=== PATIENT | male | born 1970 | race Caucasian/White ===

== ENCOUNTER 2020-10-26 05:51 | Day surgery (SDC) | payer OTHER ==
[2020-10-23 11:34] LABS: BASOPHILS % (AUTO) 1 % (0-1); EOSINOPHILS % (AUTO) 2 % (1-7); LYMPHOCYTES % (AUTO) 16 % (22-44); MEAN CORPUSCULAR HEMOGLOBIN 30.7 pg (27.5-34.5); MEAN CORPUSCULAR HGB CONC 34.2 g/dL (33.2-36.2); MEAN PLATELET VOLUME 7.7 fL (7.4-10.4); MONOCYTES % (AUTO) 7 % (2-9); NEUTROPHILS % (AUTO) 75 % (42-75); PLATELET COUNT 237 x10^3/uL (130-400); RED BLOOD COUNT 5.21 x10^6/uL (4.38-5.82); RED CELL DISTRIBUTION WIDTH 14.5 % (9.4-14.8)
[2020-10-23 11:40] LABS: MD NO
[2020-10-23 11:42] LABS: ALANINE AMINOTRANSFERASE 39 U/L (12-78); ALBUMIN 3.9 g/dL (3.4-5.0); ANION GAP 7 mmol/L (5-15); CALCIUM 9.5 mg/dL (8.5-10.1); CHLORIDE 112 mmol/L (98-107); CREATININE 1.23 mg/dL (0.7-1.3)
[2020-10-23 11:45] LABS: ALKALINE PHOSPHATASE 68 U/L (45-117); BILIRUBIN,TOTAL 0.2 mg/dL (0.2-1.0); TOTAL PROTEIN 7.1 g/dL (6.4-8.2)
[2020-10-23 11:52] LABS: INTERNATIONAL NORMALIZED RATIO 1.01 (0.93-1.1); PROTHROMBIN TIME 10.8 Seconds (9.6-11.5)
[~2020-10-26] VITALS: Ht 190.5 cm; Wt 112.0 kg
[~2020-10-26 05:51] MED LIST: ASPI325T17 PO; CHOL10003 PO; FENO145T19 PO; LEVO100T5 PO; LISI-170 PO; METO50TA82 PO; OMEP-110 PO; ROSU40TA PO
[2020-10-26 06:43] VITALS: BP 123/84
[2020-10-26] MEDS ORDERED: LACTATED RINGERS 1,000 ML IV SCH (07:00)
[2020-10-26] MEDS ORDERED: CHLORHEXIDINE 15 ML UDC MM ONE (07:00)
[2020-10-26] MEDS ORDERED: MIDAZOLAM 1 MG/ML, 2ML ONE (07:47)
[2020-10-26] MEDS ORDERED: FENTANYL PF 250 MCG/5ML ONE (07:47)
[2020-10-26] MEDS ORDERED: SUCCINYLCHOLINE 20 MG/ML, 10ML ONE (07:49)
[2020-10-26] MEDS ORDERED: PROPOFOL 10 MG/ML, 20ML ONE (07:49)
[2020-10-26] MEDS ORDERED: LIDOCAINE-MPF 2% ,5ML ONE (07:49)
[2020-10-26] MEDS ORDERED: DIPHENHYDRAMINE 50 MG/ML, 1ML IVPush PRN (08:00)
[2020-10-26] MEDS ORDERED: hydrALAzine 20 MG/ML, 1ML IV PRN (08:00)
[2020-10-26] MEDS ORDERED: PROMETHAZINE 25 MG/ML, 1ML IVPush PRN (08:00)
[2020-10-26] MEDS ORDERED: MEPERIDINE/PF 25MG/0.5ML IVPush PRN (08:00)
[2020-10-26] MEDS ORDERED: KETOROLAC 30 MG/1 ML IVPush PRN (08:00)
[2020-10-26] MEDS ORDERED: ACETAMINOPHEN 325 MG TABLET PO PRN (08:00)
[2020-10-26] MEDS ORDERED: HYDROmorphone 1 MG/ML, 1ML INJ IVPush PRN (08:00)
[2020-10-26] MEDS ORDERED: DIAZEPAM 5 MG/ML, 2ML IVPush PRN (08:00)
[2020-10-26] MEDS ORDERED: OXYcodone 5 MG/5 ML ORAL.SOL UDC PO PRN (08:00)
[2020-10-26] MEDS ORDERED: FENTANYL PF 100 MCG/2ML IV PRN (08:00)
[2020-10-26] MEDS ORDERED: ONDANSETRON 2MG/ML, 2ML IVPush PRN (08:00)
[2020-10-26] MEDS ORDERED: LABETALOL 5MG/ML, 20ML IV PRN (08:00)
[2020-10-26] MEDS ORDERED: EPINEPHRINE 1 MG/ML, 1ML ONE (08:20)
[2020-10-26] MEDS ORDERED: BUPIVACAINE/PF 0.5% ONE (08:20)
[2020-10-26] MEDS ORDERED: ONDANSETRON 2MG/ML, 2ML ONE (08:47)
[2020-10-26] MEDS ORDERED: ROCURONIUM 10 MG/ML,10ML ONE (08:47)
[2020-10-26] MEDS ORDERED: CEFAZOLIN 1,000 MG ONE (08:47)
[2020-10-26] MEDS ORDERED: PHENYLEPHRINE 10 MG/ML ONE (08:47)
[2020-10-26] MEDS ORDERED: NEOSTIGMINE 1 MG/ML, 10ML ONE ×2 (08:47)
[2020-10-26] MEDS ORDERED: HYDR-1067 PO (10:40)
[2020-10-26] MEDS ORDERED: ACETAMINOPHEN 650 MG/20.3 ML UDC ONE (10:54)
[2020-10-26] MEDS ORDERED: FENTANYL PF 100 MCG/2ML ONE (10:55)
[2020-10-26] MEDS ORDERED: OXYcodone 5 MG/5 ML ORAL.SOL UDC ONE (10:55)
== END 2020-10-26 12:05 | disposition home or self-care (01) ==
LOC: OUT 05:51 → EDSTATUS 09:00 → OUT 12:05
PROVIDERS: ATTEND Surgery
DX: C43.59 Malignant melanoma of other part of trunk (principal); I10 Essential (primary) hypertension; E78.5 Hyperlipidemia, unspecified; K21.9 Gastro-esophageal reflux disease without esophagitis; E03.9 Hypothyroidism, unspecified; I25.2 Old myocardial infarction; F17.210 Nicotine dependence, cigarettes, uncomplicated; Z79.82 Long term (current) use of aspirin; Z79.899 Other long term (current) drug therapy; Z72.89 Other problems related to lifestyle; Z20.822 Contact with and (suspected) exposure to COVID-19; Z79.01 Long term (current) use of anticoagulants; Z98.890 Other specified postprocedural states
CPT/HCPCS: 14000; 36415; 38525; 38792; 80053; 85025; 85610; 88305; 88307; 93005; A9541; J0171; J0330; J0690; J2250; J2370; J2405; J2704; J2710; J3010; J7120; U0003; 88341; 88342